=== PATIENT | female | born 2000 | race Caucasian/White ===

== ENCOUNTER 2023-02-01 10:26 | Emergency (ER) | payer OTHER ==
[~2023-02-01] VITALS: Ht 162.6 cm; Wt 81.5 kg
[2023-02-01] MEDS ORDERED: IPRATROPIUM 0.5MG/ALBUTEROL 2.5MG INH SOL UD 3ML (DUONEB) NEB ONE (11:00)
[2023-02-01] MEDS ORDERED: PRED20TA PO (13:10)
[2023-02-01 13:11] VITALS: BP 122/77
[2023-02-01] MEDS ORDERED: VENTAER INH (13:11)
[2023-02-01] MEDS ORDERED: predniSONE 20 MG TAB PO ONE (13:15)
== END 2023-02-01 13:41 | disposition home or self-care (01) ==
LOC: M ED 10:26
DX: B34.8 Other viral infections of unspecified site (principal); J45.909 Unspecified asthma, uncomplicated; Z91.040 Latex allergy status; Z91.018 Allergy to other foods; Z79.52 Long term (current) use of systemic steroids
CPT/HCPCS: 71045; 87486; 87581; 87633; 87798; 94640; 99284; J7512

== ENCOUNTER → 2023-04-01 | Outpatient (REF) | payer OTHER ==
[~2023-04-01] MED LIST: PRED20TA PO; VENTAER INH
== END ==
LOC: M WUC 17:33
PROVIDERS: ATTEND Student in an Organized Health Care Education/Training Program
DX: R30.0 Dysuria (principal)